=== PATIENT | female | born 1985 | race Caucasian/White ===

== ENCOUNTER 2024-03-09 11:04 | Emergency (ER) | payer BC, SELFPAY ==
[2024-03-09 11:09] VITALS: BP 129/77; PULSE 82; TEMP 36.7; O2SAT 99; BMI 30.5
--- NOTE | 2024-03-09 11:39 | ED_ITS ---
HPI - Skin/Abscess/Foreign Bdy General Chief complaint: Skin/Abscess/Foreign Body Stated complaint: RECTAL BLEEDING Time Seen by Provider: 03/09/24 11:29 Source: patient Mode of arrival: walk-in Limitations: no limitations History of Present Illness HPI narrative: This patient here with sore tender swollen area in the perineum. Historically, she has had previous procedures for hemorrhoids at a different institution. She does not believe she has been told that she has any ulcerative colitis or Crohn's disease. She is not sure if she has been told that she has fissures/fistulas of the GI tract but she does not have inflammatory bowel disease to her knowledge. She has not had fever shakes or chills. She is not on any antibiotics. She has no urinary symptoms such as frequency urgency or dysuria. She has no back or flank pain. She has not had any vomiting. She says when she touches the area that she has got some drainage and discharge and she has been taking some sitz bath's. Related Data Allergies Allergy/AdvReac Type Severity Reaction Status Date / Time No Known Drug Allergies Allergy Verified 03/09/24 11:08 PFSH PFSH Social History Little interest or pleasure in doing things: not at all Feeling down, depressed, or hopeless: not at all Exam Narrative Exam Narrative: Patient is awake alert pleasant oriented x 3 does not appear ill or toxic she is afebrile pulse oximetry is normal she has no chest symptoms shortness of breath. In the presence of a nurse she was examined and in fact between the inferior pole the vaginal orifice and the rectum there is a small opening draining purulent material. There is no palpable abscess. There is no rectal bleeding there is no external hemorrhoids. There is no vaginal drainage or discharge this is definitely from the what appears to be a small draining abscess or possible communication with an internal fistula tract. The abdominal examination is benign with no guarding rebound rigidity or peritoneal findings. Constitutional Vital Signs, click to edit/add: Last Vital Signs Temp 98.0 F 03/09/24 11:09 Pulse 82 03/09/24 11:09 Resp 18 03/09/24 11:09 BP 129/77 03/09/24 11:09 Pulse Ox 99 03/09/24 11:09 O2 Del Method Room Air 03/09/24 11:09 Course Vital Signs Vital signs: Vital Signs Temperature 98.0 F 03/09/24 11:09 Pulse Rate 82 03/09/24 11:09 Respiratory Rate 18 03/09/24 11:09 Blood Pressure 129/77 03/09/24 11:09 Pulse Oximetry 99 03/09/24 11:09 Oxygen Delivery Method Room Air 03/09/24 11:09 Temperature 98.0 F 03/09/24 11:09 Pulse Rate 82 03/09/24 11:09 Respiratory Rate 18 03/09/24 11:09 Blood Pressure 129/77 03/09/24 11:09 Pulse Oximetry 99 03/09/24 11:09 Oxygen Delivery Method Room Air 03/09/24 11:09 MDM - Skin/Abscess/Foreign Bdy MDM Narrative Medical decision making narrative: With the patient's history of possible internal fistulas or fissures this may be the source of her infectious process today. She is spontaneously draining and does not need a drainage procedure. Will place her on a combination of ciprofloxacin and Flagyl. She was told to take sitz bath's at least 3-4 times a day and palpate this area to promote drainage. She should then call her surgeon in [place] for evaluation in 48 to 72 hours Discharge Plan Discharge Chief Complaint: Skin/Abscess/Foreign Body Clinical Impression: Abscess of perineum Patient Disposition: Home, Self-Care Time of Disposition Decision: 11:42 Print Language: [place] Additional Instructions: Start Cipro and Flagyl. Warm sitz bath's, call your surgeon Dr. Jackson for recheck in 48 to 72 hours Referrals: Physician,Non-Staff, [Primary Care Provider] - 1 week
== END 2024-03-09 11:55 | disposition home or self-care (01) ==
PROVIDERS: Emergency Provider Emergency Medicine Emergency Medical Services
DX: L02.215 Cutaneous abscess of perineum (principal)
CPT/HCPCS: 99283